=== PATIENT | male | born 1985 | race Caucasian/White ===

== ENCOUNTER 2018-06-01 19:14 | Emergency (ER) | payer SELFPAY ==
--- NOTE | 2018-06-01 20:07 | ER ---
Nurse's Notes [facility] Name: Ben Aecvedo Age: 32 yrs Sex: Male : 1985 Arrival Date: 06/01/2018 Time: 19:21 Bed 26 Private MD: Diagnosis: Cellulitis and acute lymphangitis of other parts of limb-Left Arm Presentation: 06/01 19:24 Presenting complaint: Patient states: Redness to posterior left forearm that started aj yesterday. Denies fever. Transition of care: patient was not received from another setting of care. Onset of symptoms was May 31, 2018. Risk Assessment: Do you want to hurt yourself or someone else? Patient reports no desire to harm self or others. Initial Sepsis Screen: Does the patient meet any 2 criteria? No. Patient's initial sepsis screen is negative. Does the patient have a suspected source of infection? No. Patient's initial sepsis screen is negative. Care prior to arrival: None. 19:24 Method Of Arrival: Ambulatory 19:24 Acuity: JESUS 4 aj Triage Assessment: 19:25 Bite description: bite sustained to palmar aspect of left forearm. General: Appears in aj no apparent distress. comfortable, Behavior is calm, cooperative, appropriate for age. Pain: Complains of pain in palmar aspect of left forearm. Neuro: Level of Consciousness is awake, alert, obeys commands, Oriented to person, place, time, situation, Appropriate for age. Respiratory: Airway is patent Respiratory effort is even, unlabored, Respiratory pattern is regular, symmetrical. Derm: Skin is intact, is healthy with good turgor, Skin is pink, warm \T\ dry. normal, redness to posterior left forearm. Historical: - Allergies: 19:25 No Known Allergies; aj - Home Meds: 19:25 None [Active]; aj - PMHx: 19:25 None; aj - PSHx: 19:25 Appendectomy; aj - Immunization history:: Last tetanus immunization: < 10 years ago. - Social history:: Smoking status: Patient uses tobacco products, smokes one-half pack cigarettes per day. - Ebola Screening: : Patient negative for fever greater than or equal to 101.5 degrees Fahrenheit, and additional compatible Ebola Virus Disease symptoms Patient denies exposure to infectious person Patient denies travel to an Ebola-affected area in the 21 days before illness onset No symptoms or risks identified at this time. Screenin:36 Abuse screen: Denies threats or abuse. Denies injuries from another. Nutritional rv screening: No deficits noted. Tuberculosis screening: No symptoms or risk factors identified. Fall Risk None identified. Assessment: 20:00 General: Appears in no apparent distress. comfortable, Behavior is calm, cooperative. rv 20:00 Pain: Denies pain. Neuro: Level of Consciousness is awake, alert, obeys commands, rv Oriented to person, place, time, situation. Cardiovascular: Capillary refill < 3 seconds. Respiratory: Airway is patent. GI: No signs and/or symptoms were reported involving the gastrointestinal system. : No signs and/or symptoms were reported regarding the genitourinary system. EENT: No signs and/or symptoms were reported regarding the EENT system. Derm: Rash noted that is red, on left arm. Vital Signs: 19:25 BP 144 / 93; Pulse 74; Resp 16; Temp 98.6; Pulse Ox 99% on R/A; Weight 65.77 kg; Height aj 6 ft. 0 in. (182.88 cm); 19:25 Body Mass Index 19.67 (65.77 kg, 182.88 cm) aj ED Course: 19:21 Patient arrived in ED. ds1 19:25 Triage completed. aj 19:25 Arm band placed on left wrist. Patient placed in waiting room, Patient notified of wait aj time. 19:49 Dung Sandoval PA is PHCP. cp 19:49 Dung Sol MD is Attending Physician. cp 20:36 No provider procedures requiring assistance completed. Patient did not have IV access rv during this emergency room visit. 20:37 Patient has correct armband on for positive identification. Bed in low position. Call rv light in reach. Pulse ox on. NIBP on. Administered Medications: No medications were administered Outcome: 20:07 Discharge ordered by . cp 20:37 Discharged to home ambulatory. rv 20:37 Condition: good 20:37 Discharge instructions given to patient, Instructed on discharge instructions, follow up and referral plans. medication usage, Demonstrated understanding of instructions, follow-up care, medications, Prescriptions given X 2. 20:37 Patient left the ED. rv Signatures: Gloria Vega RN RN Rachel Baltazar ds1 Page, Dung, PA PA cp Juan R, Antonio, RN RN rv
--- NOTE | 2018-06-01 20:08 | EDPHYS ---
Physician Documentation [facility] Name: Ben Acevedo Age: 32 yrs Sex: Male : 1985 Arrival Date: 06/01/2018 Time: 19:21 Bed 26 Private MD: ED Physician Dung Sol HPI: 06/01 19:59 This 32 yrs old Male presents to ER via Ambulatory with complaints of Insect cp Bite. 19:59 The patient or guardian complains of a bite, by an insect, tenderness, erythema. The cp complaints affect the palmar aspect of left forearm. Context: resulted from insect bite. Onset: The symptoms/episode began/occurred yesterday. Treatment prior to arrival includes: no previous treatment. Associated signs and symptoms: Pertinent positives: erythema, Pertinent negatives: decreased range of motion, fever. Severity of symptoms: in the emergency department the symptoms are unchanged, despite home interventions. Historical: - Allergies: 19:25 No Known Allergies; aj - Home Meds: 19:25 None [Active]; aj - PMHx: 19:25 None; aj - PSHx: 19:25 Appendectomy; aj - Immunization history:: Last tetanus immunization: < 10 years ago. - Social history:: Smoking status: Patient uses tobacco products, smokes one-half pack cigarettes per day. - Ebola Screening: : Patient negative for fever greater than or equal to 101.5 degrees Fahrenheit, and additional compatible Ebola Virus Disease symptoms Patient denies exposure to infectious person Patient denies travel to an Ebola-affected area in the 21 days before illness onset No symptoms or risks identified at this time. ROS: 20:00 Constitutional: Negative for body aches, chills, fever, poor PO intake. cp 20:00 Eyes: Negative for injury, pain, redness, and discharge. cp 20:00 Cardiovascular: Negative for chest pain. 20:00 Respiratory: Negative for cough, shortness of breath, wheezing. 20:00 Skin: Positive for erythema, of the left forearm. 20:00 All other systems are negative. Exam: 20:02 Head/Face: Normocephalic, atraumatic. cp 20:02 Constitutional: The patient appears in no acute distress, alert, awake, non-toxic, well developed, well nourished. 20:02 Eyes: Periorbital structures: appear normal, Conjunctiva: normal, no exudate, no injection, Lids and lashes: appear normal, bilaterally. 20:02 ENT: External ear(s): are unremarkable, Nose: is normal, Mouth: Lips: moist, Oral mucosa: pink and intact, moist, Posterior pharynx: is normal, airway is patent, no erythema, no exudate, Voice: is normal. 20:02 Neck: ROM/movement: is normal, is supple, without pain, no range of motions limitations, no nuchal rigidity. 20:02 Chest/axilla: Inspection: normal, Palpation: is normal, no crepitus, no tenderness. 20:02 Cardiovascular: Rate: normal, Rhythm: regular. 20:02 Respiratory: the patient does not display signs of respiratory distress, Respirations: normal, no use of accessory muscles, no retractions, no splinting, no tachypnea, labored breathing, is not present, Breath sounds: are clear throughout, no decreased breath sounds, no stridor, no wheezing. 20:02 Abdomen/GI: Exam negative for discomfort, distension, guarding, Inspection: abdomen appears normal. 20:02 Skin: small superficial bite wound noted posterior left forearm with streaking erythema medial aspect to mid left upper arm. Vital Signs: 19:25 BP 144 / 93; Pulse 74; Resp 16; Temp 98.6; Pulse Ox 99% on R/A; Weight 65.77 kg; Height aj 6 ft. 0 in. (182.88 cm); 19:25 Body Mass Index 19.67 (65.77 kg, 182.88 cm) MDM: 19:49 Patient medically screened. cp 20:00 Differential diagnosis: abscess, cellulitis. cp 20:07 Data reviewed: vital signs, nurses notes, and as a result, I will discharge patient. cp 20:07 Counseling: I had a detailed discussion with the patient and/or guardian regarding: the cp historical points, exam findings, and any diagnostic results supporting the discharge/admit diagnosis, to return to the emergency department if symptoms worsen or persist or if there are any questions or concerns that arise at home. Administered Medications: No medications were administered Disposition: 06/02 06:42 Co-signature as Attending Physician, Dung Sol MD I agree with the assessment and refugio plan of care. Disposition: 06/01/18 20:07 Discharged to Home. Impression: Cellulitis and acute lymphangitis of other parts of limb - Left Arm. - Condition is Stable. - Discharge Instructions: Cellulitis, Adult, Lymphangitis, Adult. - Prescriptions for Doxycycline Hyclate 100 mg Oral Tablet - take 1 tablet by ORAL route every 12 hours; 20 tablet. Bactrim DS 800- 160 mg Oral Tablet - take 1 tablet by ORAL route every 12 hours for 10 days; 20 tablet. - Medication Reconciliation Form, Thank You Letter, Antibiotic Education, Prescription Opioid Use form. - Follow up: Private Physician; When: 2 - 3 days; Reason: Recheck today's complaints. - Problem is new. - Symptoms are unchanged. Signatures: Gloria Vega RN RN Dung Talamantes MD MD cha Page, Corey PA PA Antonio Botello, RN RN rv Corrections: (The following items were deleted from the chart) 06/01 20:37 20:07 06/01/2018 20:07 Discharged to Home. Impression: Cellulitis and acute rv lymphangitis of other parts of limb - Left Arm. Condition is Stable. Forms are Medication Reconciliation Form, Thank You Letter, Antibiotic Education, Prescription Opioid Use. Follow up: Private Physician; When: 2 - 3 days; Reason: Recheck today's complaints. Problem is new. Symptoms are unchanged. cp
== END 2018-06-01 20:37 | disposition home or self-care (01) ==
LOC: ER 19:14
DX: L03.114 Cellulitis of left upper limb (principal); L03.124 Acute lymphangitis of left upper limb; F17.210 Nicotine dependence, cigarettes, uncomplicated
CPT/HCPCS: 99283